=== PATIENT | female | born 1980 | race African-American/Black ===

== ENCOUNTER 2017-08-09 22:09 | Emergency (ER) | payer OTHER ==
[2017-08-10] MEDS ORDERED: LIDOCAINE 4%/TETRACAINE 0.5%/EPI 0.18% 5 ML TOPICAL SOLN TOP ONE (00:55)
[2017-08-10] MEDS ORDERED: FAMOTIDINE INJ/PF 20 MG/2 ML SDV IV ONE (00:57)
[2017-08-10] MEDS ORDERED: DIPH/PERTUSS(ACELL)/TETANUS VAC/PF 0.5 ML SYR (>=10YO) IM ONE (01:08)
[2017-08-10] MEDS ORDERED: CEPHALEXIN 500 MG CAPSULE PO ONE (02:19)
--- NOTE | 2017-08-10 02:19 | ER Document Report ---
ED General - General Chief Complaint: Finger laceration Stated Complaint: FINGER LACERATION Time Seen by Provider: 08/10/17 00:55 Notes: Patient is a 37-year-old female who presents with complaint of cutting the tip of her left second digit of with a sliding type of blade that is used to slice food. Patient is unsure when the last tetanus shot was. She denies any other injuries. She has no other complaints at this time. TRAVEL OUTSIDE OF THE [place] IN LAST 30 DAYS: No Past Medical History - Social History Smoking Status: Unknown if Ever Smoked Chew tobacco use (# tins/day): No Frequency of alcohol use: None Drug Abuse: None Family History: Reviewed & Not Pertinent Patient has suicidal ideation: No Patient has homicidal ideation: No Renal/ Medical History: Denies: Hx Peritoneal Dialysis Past Surgical History: Reports: Hx Section - x's2 Review of Systems - Review of Systems Notes: My Normal Review Basic REVIEW OF SYSTEMS: CONSTITUTIONAL : Denies fever, chills, or sweats. Denies recent illness. MUSCULOSKELETAL: Fingertip avulsion to second left digit. SKIN: Denies rash or skin lesions. NEUROLOGICAL: Denies altered mental status or loss of consciousness. Denies headache. Denies weakness or paralysis or loss of use of either side. Denies problems with gait or speech. Denies sensory or motor loss. ALL OTHER SYSTEMS REVIEWED AND NEGATIVE. Physical Exam - Vital signs Vitals: Temp Pulse Resp BP Pulse Ox 98.7 F 82 20 145/89 H 100 08/09/17 23:16 08/09/17 23:16 08/09/17 23:16 08/09/17 23:16 08/09/17 23:16 - Notes Notes: General Appearance: Well nourished, alert, cooperative, no acute distress, no obvious discomfort. Vitals: reviewed, See vital signs table. Extremities: strength 5/5 in all extremities, good pulses in all extremities, patient has a partial finger tip avulsion to the second left digit. No exposed bone. Majority of the fingernail is intact. Active venous oozing from the fingertip. No other injuries. Skin: warm, dry, appropriate color, no rash Neuro: speech clear, oriented x 3, normal affect, responds appropriately to questions. Course - Re-evaluation Re-evalutation: 08/10/17 02:31 Patient had a very small piece of skin from the avulsion that was hanging off the finger by a very thin thread of tissue. This was of course cut off. I then placed let us over the fingertip. To stop the bleeding. Finger was thoroughly irrigated and cleaned by the nurse. I then applied a nonstick dressing over the finger. I will place patient on Keflex. Test is shot was up- to-date. I informed her that in 48 hours she needs to start doing daily dressing changes. I informed her that the finger will granulate and then inform the skin. Informed her she will always have that small deformity to the fingertip itself. I have given her Dr. Strong, hand surgeon, to follow-up closely with. Patient encouraged to return to ER immediately if she develops any redness swelling or signs of infection. Patient agrees with plan will be discharged home. Dictation of this chart was performed using voice recognition software; therefore, there may be some unintended grammatical errors. - Vital Signs Vital signs: Temp Pulse Resp BP Pulse Ox 98.7 F 82 20 145/89 H 100 08/09/17 23:16 08/09/17 23:16 08/09/17 23:16 08/09/17 23:16 08/09/17 23:16 Discharge - Discharge Clinical Impression: Avulsion of finger tip Qualifiers: Encounter type: initial encounter Qualified Code(s): S61.209A - Unspecified open wound of unspecified finger without damage to nail, initial encounter Condition: Good Disposition: HOME, SELF-CARE Additional Instructions: Please change the dressing on your finger every day. You can leave the initial dressing I have applied on for 48 hours. Always apply a nonstick dressing first to your finger. Please return to the ER immediately if you have any redness or swelling to the finger, fevers, or signs of infection. please follow up with Dr. Strong ( the hand surgeon) for reevaluation. Prescriptions: Cephalexin Monohydrate [Keflex 500 mg Capsule] 500 mg PO BID 5 Days #14 capsule Referrals: CARLOS STRONG DO [ACTIVE STAFF] - Follow up in 3-5 days
[2017-08-10 02:39] VITALS: BP 118/73
== END 2017-08-10 02:39 | disposition home or self-care (01) ==
LOC: ER 22:09
DX: S61.211A Laceration without foreign body of left index finger without damage to nail, initial encounter (principal); W26.8XXA Contact with other sharp object(s), not elsewhere classified, initial encounter; Y93.G1 Activity, food preparation and clean up
CPT/HCPCS: 99282; 90471; 90715; J3490